=== PATIENT | female | born 1940 | race Caucasian/White ===

== ENCOUNTER 2016-11-18 07:54 | Day surgery (SDC) | payer MEDICARE ==
[2016-11-14 14:02] LABS: HEMATOCRIT 44.1 % (36.0-48.0); HEMOGLOBIN 14.9 g/dL (12.0-16.0)
[2016-11-14 14:13] LABS: BASOPHILS 0.5 %; BASOPHILS ABSOLUTE 0.04 10/3/uL (0.0-0.16); EOSINOPHILS 1.8 %; EOSINOPHILS ABSOLUTE 0.15 10/3/uL (0.0-0.53); LYMPHOCYTES 19.6 %; LYMPHOCYTES ABSOLUTE 1.67 10/3/uL (0.67-4.30); MEAN CORPUS HGB CONC 33.6 g/dL (32.0-36.0); MEAN CORPUSCULAR HEMOGLOB 30.8 pg (26.0-34.0); MEAN CORPUSCULAR VOLUME 91.7 fL (80-100); MEAN PLATELET VOLUME 9.5 fL (9.2-13.0); MONOCYTES 4.8 %; MONOCYTES ABSOLUTE 0.41 10/3/uL (0.21-1.20); NEUTROPHILS 73.3 %; NEUTROPHILS ABSOLUTE 6.25 10/3/uL (2.02-8.40); PLATELET COUNT 288 10/3/uL (150-400); RBC DISTRIBUTION WIDTH 12.4 % (12.0-16.0); WHITE BLOOD CELLS 8.5 10/3/uL (4.5-10.5)
[2016-11-14 14:15] LABS: MANUAL DIFF NO %
[2016-11-14 14:26] LABS: CALCIUM, SERUM 8.8 MG/DL (8.5-10.4); CHLORIDE, SERUM 101 MMOL/L (96-112); CO2 (CARBON DIOXIDE) 28 MMOL/L (24-34); POTASSIUM, SERUM 3.6 MMOL/L (3.5-5.3); SODIUM, SERUM 142 MMOL/L (135-148)
[2016-11-14 14:27] LABS: BUN (BLOOD UREA NITROGEN) 27 MG/DL (6-23); CREATININE 1.71 MG/DL (0.55-1.02); GFR AFRICAN AMERICAN 34 ML/MIN (>=60); GFR NON AFRICAN AMERICAN 29 ML/MIN (>=60); GLUCOSE, SERUM 126 MG/DL (60-99)
--- NOTE | ~2016-11-18 | OP ---
Record Of Operation [facility] [address] [place]. [address] NAME: MARGUERITE CONNELL : 44 STATUS : REG [facility] [place]#: [id number] AGE: 76 ADM/REG DATE : 11/18/16 MR#: [id number] REPORT SERV DATE: 11/18/16 DICTATED BY: GRECIA SUTTON DATE: 11/18/16 REPORT STATUS : Draft TRANSCRIBED BY: MODL DATE: 11/18/16 DATE OF PROCEDURE: 11/18/2016 PREOPERATIVE DIAGNOSIS: Left distal ureteral stone and left renal stone. POSTOPERATIVE DIAGNOSIS: Left distal ureteral stone and left renal stone. PROCEDURE PERFORMED: Cystoscopy, left retrograde pyelogram, left rigid ureteroscopy with laser fragmentation, and extraction of a distal left ureteral stone ,left flexible ureteroscopy with laser fragmentation of left renal stone, and stent placement. SURGEON: Grecia Sutton M.D. ANESTHESIA: General. ESTIMATED BLOOD LOSS: 10 mL. INDICATIONS: This is a 76-year-old, white female, who presented to the office this week with significant left flank pain. CT demonstrated left hydronephrosis and about an 8 mm left distal ureteral stone, as well as intrarenal stone in the left kidney. We are planning endoscopic management. Risks of infection, bleeding, failure, need for further surgery, prolonged stenting, etc. were reviewed. PROCEDURE IN DETAIL: The patient was taken to the operating room and underwent a general anesthetic. She was placed in the lithotomy position on the table, and her external genitalia were sterilely prepped and draped. The 22-Barbadian cystoscope sheath with 30-degree lens was inserted under direct vision per urethra with the aid of the video monitor. The bladder was inspected and the mucosa was felt to be normal. The right orifice looked normal. The left looked normal as well. No stones were noted in the bladder. A retrograde pyelogram was obtained showing an obstructing stone in the left distal ureter with proximal hydronephrosis. An 0.038 Guidewire was advanced past the stone and the distal ureter was then dilated using an 11/13-Barbadian ureteral access sheath with obturator. Following dilatation, the rigid ureteroscope was advanced up into the left ureter and the stone was encountered almost immediately. It was not impacted. The 200 micron laser fiber was used to break quite a few small fragments off the stone, and ultimately, the stone was broken into two pieces. Each piece was grasped and removed using a Nitinol basket. Reinspection of the distal ureter revealed it to be free of stones. There were no other significant abnormalities noted other than just irritation at the point where the stone had previously been impacted. The 07/20 ureteral access sheath with obturator was reinserted over the guidewire and advanced up into the proximal ureter. A second guidewire was placed through the access sheath and the sheath and obturator were reinserted over one of the two guidewires leaving the other in place as a safety wire. The flexible ureteroscope was then advanced up through the access sheath up into a large dilated upper pole calyx which contained a sizable stone. The 200 micron laser fiber was used to fragment the stone into many small pieces. Once I was satisfied that the upper pole calyx was free of residual significant large stones. The ureteroscope was pulled back and advanced into the lower pole Record Of [address] [place]. [address] NAME: MARGUERITE CONNELL : 44 STATUS : REG [facility] [place]#: [id number] AGE: 76 ADM/REG DATE : 11/18/16 MR#: [id number] REPORT SERV DATE: 11/18/16 DICTATED BY: GRECIA SUTTON DATE: 11/18/16 REPORT STATUS : Draft TRANSCRIBED BY: TESHA DATE: 11/18/16 system. I should mention that the upper and lower poles drained through a single calyx into really more into the ureter. There was no well-defined renal pelvis at all. The lower pole area was inspected. No stones were noted. There was some fibrinous debris lying over the papillae of the lower pole calyces. This portion of the collecting system was dilated as well. The ureteroscope was then withdrawn down the ureter with no new findings noted. The cystoscope was replaced over the previously placed guidewire and a 6-Barbadian x 28 cm Contour stent was advanced over the guidewire such that the proximal end of the stent coiled in the dilated upper pole of the calyx and the distal end coil was visually observed to coil in the bladder following removal of the guidewire. The stent was left connected to a string dangle which was taped to the patient's inner thigh. The bladder was drained. All endoscopic apparatus was removed, and she was taken to recovery in stable condition. DS/MODL Grecia Sutton M.D. / [id number] CC: Grecia Sutton M.D.
[~2016-11-18 07:54] MED LIST: ADVIL PO; ALLERGY INJ; AMB10 PO; ASAB PO; FLOMAX4 PO; HYDROCHLOROT12.5 MG PO; MAGNESIUM CITRATE; MICRO-K10 MEQ PO; PRAVAC PO; PROVHFA INH; SEPTRA DS1 TAB PO; T PO; VITAMIN B-121000 MC1 SL; VITAMIN D1000 UNI1 PO; ZOFRAN4 PO; ZYRTEC ALLGY10 MG PO
[2016-11-18 08:25] LABS: PARTIAL THROMBO TIME 25.9 SEC (22.5-37.2); PROTIME (NOT ORD) 13.1 SEC (12.0-14.5)
[2016-11-21 11:37] LABS: STONE COMPOSITION TWO DNR (())
== END 2016-11-18 20:20 | disposition home or self-care (01) ==
LOC: SDC 07:54
PROVIDERS: Urology
PROC: 0WFR8ZZ Fragmentation in Genitourinary Tract, Via Natural or Artificial Opening Endoscopic (ICD-10-PCS; principal; 2016-11-18 09:30)
PROC: 0T778DZ Dilation of Left Ureter with Intraluminal Device, Via Natural or Artificial Opening Endoscopic (ICD-10-PCS; 2016-11-18 09:30)
DX: N20.2 Calculus of kidney with calculus of ureter (principal); I10 Essential (primary) hypertension; J45.909 Unspecified asthma, uncomplicated; G47.33 Obstructive sleep apnea (adult) (pediatric); Z79.899 Other long term (current) drug therapy
CPT/HCPCS: 74420; 80048; 82365; 85025; 85610; 85730; 93005; C1758; C2617; J2250; J2405; J2710; J3010; Q9967